=== PATIENT | female | born 1985 | race Caucasian/White ===

== ENCOUNTER → 2016-08-27 | Outpatient (CLI) | payer BC ==
[~2016-08-27] MED LIST: BACTRIM DS 8001 TAB PO; BIRTH CONTROL PILLS; CELEXA40 MG PO; EFFEXOR-XR150 MG PO; GEODON 40MG40 MG PO; KLONOPIN 1MG1 MG PO; PRILOSEC 10MG C10 MG PO; ZOFRAN 4MG T4 MG/TAB PO
== END ==
LOC: BHSO 15:44
DX: F41.1 Generalized anxiety disorder (principal)

== ENCOUNTER → 2017-01-04 | Outpatient (CLI) | payer BC | LOC: BHSO 15:16 | DX: F41.1 Generalized anxiety disorder (principal) ==

== ENCOUNTER → 2017-04-29 | Outpatient (CLI) | payer BC | LOC: BHSO 16:11 | DX: F41.1 Generalized anxiety disorder (principal) | CPT/HCPCS: G0463 ==

== ENCOUNTER 2020-11-20 17:05 | Emergency (ER) | payer BC ==
[~2020-11-20] VITALS: Ht 165.1 cm; Wt 114.5 kg
[2020-11-20] MEDS ORDERED: SEROQUEL50 MG PO (18:17)
[2020-11-20] MEDS ORDERED: PROZAC40 MG PO (18:18)
[2020-11-20] MEDS ORDERED: LAMICTAL200 MG PO (18:18)
[2020-11-20 18:19] VITALS: BP 193/92; PULSE 83; TEMP 98.4
== END 2020-11-20 18:26 | disposition left against medical advice (07) ==
LOC: COL.ER 17:05
DX: M79.646 Pain in unspecified finger(s) (principal)

== ENCOUNTER 2020-12-05 22:12 | Emergency (ER) | payer BC ==
[~2020-12-05] VITALS: Ht 165.1 cm; Wt 113.6 kg
[~2020-12-05 22:12] MED LIST changes: +LAMICTAL200 MG PO; +PROZAC40 MG PO; +SEROQUEL50 MG PO
[2020-12-05 22:13] VITALS: TEMP 97.8
[2020-12-05 22:58] LABS: BASO # 0.1 (0.0-0.2); BASO % 0.5 % (0.0-2.0); EOS # 0.2 (0.0-0.7); EOS % 1.9 % (0-4.0); GRAN % 50.3 % (42.2-75.2); HEMATOCRIT 41.5 % (37.0-47.0); HEMOGLOBIN 12.8 g/dl (12.5-16.0); LYMPH # 4.9 (1.2-3.4); LYMPH % 40.9 % (20.0-51.0); MEAN CELL VOLUME 75 fl (80.0-100.0); MEAN CORPUSCULAR HEMOGLOBIN 23 pg (27.0-31.0); MEAN CORPUSCULAR HGB CONC 31 g/dl (33.0-37.0); MEAN PLATELET VOLUME 10.1 fl (7.4-10.4); MONO # 0.7 (0.1-0.6); MONO % 6.1 % (1.7-9.3); PLATELET COUNT 411 K/mm3 (130-400); RED BLOOD COUNT 5.52 M/mm3 (4.10-5.30); REDCELL DISTRIBUTION WIDTH-CV 18.9 % (11.5-14.5)
[2020-12-05 23:07] LABS: ALBUMIN 4.4 gm/dL (3.5-5.0); BILIRUBIN,TOTAL 0.1 mg/dL (0.0-1.0); CALCIUM 9.5 mg/dL (8.4-10.2); CREATININE, serum 0.84 (0.52-1.25); POTASSIUM 3.5 mmol/L (3.4-5.0); TOTAL PROTEIN 8.5 gm/dL (6.4-8.2)
[2020-12-06 01:00] VITALS: BP 98/68; PULSE 119
== END 2020-12-06 01:05 | disposition home or self-care (01) ==
LOC: COL.ER 22:12
PROVIDERS: Emergency Medicine
DX: F10.129 Alcohol abuse with intoxication, unspecified (principal); F41.9 Anxiety disorder, unspecified; I10 Essential (primary) hypertension; Z79.899 Other long term (current) drug therapy
CPT/HCPCS: J2060; J2405; J7030

== ENCOUNTER 2021-01-29 01:06 | Emergency (ER) | payer BC ==
[~2021-01-29] VITALS: Ht 165.1 cm; Wt 109.1 kg
[2021-01-29 01:34] LABS: HEMATOCRIT 41.3 % (37.0-47.0); HEMOGLOBIN 13.2 g/dl (12.5-16.0); MEAN CELL VOLUME 81 fl (80.0-100.0); MEAN CORPUSCULAR HEMOGLOBIN 26 pg (27.0-31.0); MEAN CORPUSCULAR HGB CONC 32 g/dl (33.0-37.0); MEAN PLATELET VOLUME 9.7 fl (7.4-10.4); PLATELET COUNT 317 K/mm3 (130-400); RED BLOOD COUNT 5.11 M/mm3 (4.10-5.30); REDCELL DISTRIBUTION WIDTH-CV 18.1 % (11.5-14.5)
[2021-01-29 01:51] LABS: ALBUMIN 3.2 gm/dL (3.5-5.0); BILIRUBIN,TOTAL 0.3 mg/dL (0.2-1.2); C-REACTIVE PROTEIN 2.7 mg/dL (0.00-0.50); CALCIUM 9.7 mg/dL (8.4-10.2); CREATININE, serum 0.79 mg/dL (0.57-1.11); POTASSIUM 3.7 mmol/L (3.5-4.5); TOTAL PROTEIN 7.3 gm/dL (6.2-8.1)
[2021-01-29 01:56] LABS: HYPOCHROMIA 1+; LYMPHOCYTE 36 % (20.0-51.0); NEUTROPHILS 55 % (42.0-75.2); PLATELET ESTIMATE NORMAL (NORMAL)
[2021-01-29] MEDS ORDERED: PHENERGAN 25 TA25 MG PO (02:52)
[2021-01-29] MEDS ORDERED: ANTIVERT 25MG25 MG PO (02:52)
[2021-01-29 04:12] VITALS: BP 134/85; PULSE 84; TEMP 97.8
== END 2021-01-29 04:15 | disposition home or self-care (01) ==
LOC: COL.ER 01:06
PROVIDERS: Emergency Medicine
DX: R42 Dizziness and giddiness (principal); R11.0 Nausea; I10 Essential (primary) hypertension; F41.9 Anxiety disorder, unspecified; F32.A Depression, unspecified; Z79.899 Other long term (current) drug therapy
CPT/HCPCS: J2405; J2550; J7030

== ENCOUNTER → 2022-07-07 | Outpatient (CLI) | payer BC ==
[~2022-07-07] VITALS: Ht 165.1 cm; Wt 118.5 kg
[~2022-07-07] MED LIST changes: +ANTIVERT 25MG25 MG PO; +ESTRACE 1MG1 MG/TAB PO; +LAMICTAL 100MG100 MG PO; +MOBIC15 MG PO; +MULTI VITAMINS1 TAB PO; +PHENERGAN 25 TA25 MG PO; +ROBAXIN 50500 MG/TAB PO; +TOPROL XL 50MG50 MG PO; +WEGOVY2.4 MG/0.7 SQ
[2022-07-07 08:16] VITALS: BP 136/82; PULSE 87; TEMP 98.2
[2022-07-07 09:00] VITALS: BP 144/88; PULSE 86
== END ==
LOC: COL.RAD 07:56
DX: R93.89 Abnormal findings on diagnostic imaging of other specified body structures (principal)
CPT/HCPCS: 27939

== ENCOUNTER → 2023-06-24 | Outpatient (CLI) | payer BC ==
[~2023-06-24] MED LIST changes: +PRIL40 PO; -PRILOSEC 10MG C10 MG PO; +SYNTHROID0.125 MG/T PO; +XANAX .25M0.25 MG/TA PO
== END ==
LOC: MC.RAD 09:47
DX: N63.10 Unspecified lump in the right breast, unspecified quadrant (principal)

== ENCOUNTER 2023-12-06 18:20 | Emergency (ER) | payer BC ==
[~2023-12-06] VITALS: Ht 165.1 cm; Wt 127.3 kg
[2023-12-06 18:26] VITALS: TEMP 97.9
[2023-12-06] MEDS ORDERED: Morphine 4 MG/ML VIAL IV ONE (19:00)
[2023-12-06 19:02] LABS: BASO % 0.5 % (0.0-2.0); EOS # 0.1 K/mm3 (0.0-0.7); EOS % 1.2 % (0.0-4.0); GRAN # 3.3 K/mm3 (1.4-6.5); GRAN % 49.1 % (42.2-75.2); HEMATOCRIT 43.8 % (37.0-47.0); HEMOGLOBIN 13.9 g/dl (12.5-16.0); LYMPH # 2.6 K/mm3 (1.2-3.4); LYMPH % 38.6 % (20.0-51.0); MEAN CELL VOLUME 86 fl (80.0-100.0); MEAN CORPUSCULAR HEMOGLOBIN 27 pg (27-31); MEAN CORPUSCULAR HGB CONC 32 g/dl (33.0-37.0); MEAN PLATELET VOLUME 9.6 fl (7.4-10.4); MONO # 0.7 K/mm3 (0.1-0.6); MONO % 10.4 % (1.7-9.3); PLATELET COUNT 266 K/mm3 (130-400); RED BLOOD COUNT 5.11 M/mm3 (4.10-5.30); REDCELL DISTRIBUTION WIDTH-CV 13.2 % (11.5-14.5)
[2023-12-06 19:26] LABS: ALBUMIN 3.6 g/dL (3.5-5.0); BILIRUBIN,TOTAL 0.2 mg/dL (0.2-1.2); CALCIUM 9.9 mg/dL (8.4-10.2); CREATININE, serum 0.85 mg/dL (0.57-1.11); POTASSIUM 3.3 mEq/L (3.5-4.5); TOTAL PROTEIN 7.8 g/dl (6.2-8.1)
[2023-12-06] MEDS ORDERED: HYDROmorphone 0.5 MG/0.5 ML SYRINGE IM ONE (19:30)
[2023-12-06] MEDS ORDERED: Home HYDROcodone/Acetaminophen 5/325 MG #4 TABS/PACK PO ONE (20:00)
[2023-12-06 20:03] VITALS: BP 131/70; PULSE 82
== END 2023-12-06 20:21 | disposition home or self-care (01) ==
LOC: COL.ER 18:20
PROVIDERS: Emergency Medicine
DX: S82.831A Other fracture of upper and lower end of right fibula, initial encounter for closed fracture (principal); W01.0XXA Fall on same level from slipping, tripping and stumbling without subsequent striking against object, initial encounter
CPT/HCPCS: J1170; L1830; L1846